=== PATIENT | female | born 1975 | race Caucasian/White ===

== ENCOUNTER 2017-05-24 07:27 | Emergency (ER) | payer MEDICAID, OTHER ==
[~2017-05-24] VITALS: Ht 157.5 cm; Wt 83.8 kg
[~2017-05-24 07:27] MED LIST: CEPH500C3 PO; CLON.5; LORT5TAB PO; PAXI25TA3 PO; ROBA750T3 PO
[2017-05-24 07:31] VITALS: BP 172/115; PULSE 93; RESP 16; TEMP 98.3; O2SAT 97
[2017-05-24] MEDS ORDERED: LISI10TA PO ×2 (07:45→08:54)
[2017-05-24] MEDS ORDERED: TRAZ1TAB14 PO (07:45)
[2017-05-24] MEDS ORDERED: METF500T PO (07:45)
[2017-05-24] MEDS ORDERED: PAXI40TA9 PO (07:45)
[2017-05-24] MEDS ORDERED: VIST25CA PO (07:45)
--- NOTE | 2017-05-24 08:06 | PD ---
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 Said she has been scratching the vaginal region because of the itch. Tried monostat but didnt help. Denies any fever, chest pain, sob, n/v, abdominal pain, focal weakness or numbness, dysuria , hematuria. Pt said she also ran out of her blood pressure medication for 1 month and requesting refills. PFSH Past Medical History Arthritis: Yes Bipolar Disorder: Yes Anxiety: Yes (PANIC ATTACKS) Depression: Yes Diabetes: Yes (GESTATIONAL) Patient Takes Glucophage: Yes Diminished Hearing: No Headaches: Yes Hypertension: Yes Psychiatric: Yes Migraines: Yes ?: Not : 7 Para: 6 Miscarriage: 1 : 0 Tubal Ligation: Yes (2004) Past Surgical History Cholecystectomy: Yes (2001) Gynecologic Surgery: Yes (BENIGN LUMP RIGHT BREAST 2000) Other Surgery: Yes (LUMP REMOVED FROM RIGHT BREAST) Social History Alcohol Use: No (ALLERGIC TO ALCOHOL) Tobacco Use: Yes (1-2 PACKS PER DAY) Substance Use: No Allergies-Medications (Allergen,Severity, Reaction): Coded Allergies: acetaminophen (Unverified Allergy, Intermediate, VOMITING, HIVES, 05/24/17) alcohol (Unverified Allergy, Intermediate, HIVES, 05/24/17) aspirin (Unverified Allergy, Intermediate, HIVES, 05/24/17) doxepin (Unverified Allergy, Intermediate, HIVES, 05/24/17) morphine (Unverified Allergy, Intermediate, HIVES, 05/24/17) propoxyphene (Unverified Allergy, Intermediate, VOMITING, HIVES, 05/24/17) Uncoded Allergies: FRUIT (Allergy, Mild, ALL FRUITS-DIARRHEA, 04/21/07) Reported Meds & Prescriptions Reported Meds & Active Scripts Active Lisinopril-Hctz 10-12.5 Mg Tab 1 Tab PO DAILY Reported Lisinopril-Hctz 10-12.5 Mg Tab 1 Tab PO DAILY Metformin (Metformin HCl) 500 Mg Tab 500 Mg PO BIDPC Vistaril (Hydroxyzine Pamoate) 25 Mg Cap 25 Mg PO HS Trazodone (Trazodone HCl) 150 Mg Tablet 150 Mg PO HS Paxil (Paroxetine HCl) 40 Mg Tablet 40 Mg PO DAILY NEB Review of Systems Except as stated in HPI: all other systems reviewed are Neg Physical Exam Narrative GENERAL: 41yo F not in distress. SKIN: Focused skin assessment warm/dry. HEAD: Atraumatic. Normocephalic. CARDIOVASCULAR: Regular rate and rhythm. No murmur appreciated. RESPIRATORY: No accessory muscle use. Clear to auscultation. Breath sounds equal bilaterally. GASTROINTESTINAL: Abdomen soft, non-tender, nondistended. No rebound tenderness or guarding. PELVIC: Yellow/white discharge. No blood. No CMT or adnexal tenderness bilaterally. MUSCULOSKELETAL: No obvious deformities. No clubbing. No cyanosis. No edema. NEUROLOGICAL: Awake and alert. No obvious cranial nerve deficits. Motor grossly within normal limits. Normal speech. PSYCHIATRIC: Appropriate mood and affect; insight and judgment normal. Data Data Last Documented VS Vital Signs Date Time Temp Pulse Resp B/P (MAP) Pulse Ox O2 Delivery O2 Flow Rate FiO2 05/24/17 09:07 89 16 184/99 (127) 98 Room Air 05/24/17 07:31 98.3 Orders Orders Gc And Chlamydia Pcr (05/24/17 08:00) Wet Prep Profile (05/24/17 08:00) Ed Urine Pregnancytest Poc (05/24/17 08:00) Blood Glucose (05/24/17 08:00) Lisinopril (Prinivil) (05/24/17 08:45) Hydrochlorothiazide (Microzide) (05/24/17 08:45) Metronidazole (Flagyl) (05/24/17 08:45) Ed Discharge Order (05/24/17 09:09) Labs Laboratory Tests Test 05/24/17 08:10 Clue Cells (Wet Prep) NONE SEEN Vaginal Trichomonas (Wet Prep) PRESENT Vaginal Yeast (Wet Prep) NONE SEEN MDM Medical Decision Making Medical Screen Exam Complete: Yes Emergency Medical Condition: Yes Differential Diagnosis Bacterial vaginosis vs. vaginal candidiasis vs. trichomoniasis Narrative Course 41yo F with c/o vaginal discharge and itching for 1 week. No abdominal pain or any other symptoms. Wet prep showed positive vaginal trichomonas. Pt given metronidazole 2gm PO. BP is elevated and pt has been out of her lisinopril- HCTZ for 1 month. Pt given her usual dose. Blood glucose 112. Urine negative. Pt is asymptomatic but requesting her blood pressure medication. Return precautions given. Diagnosis Primary Impression: Vaginal trichomoniasis Additional Impression: Hypertension Qualified Codes: I10 - Essential (primary) hypertension Patient Instructions: General Instructions Departure Forms: Tests/Procedures Additional Instructions: Please follow up with primary care physician for your blood pressure control. Return to the ED if symptoms worsen. Med/Other Pt SpecificInfo: Prescription(s) given Scripts Lisinopril-Hctz (Lisinopril-Hctz) 10-12.5 Mg Tab 1 TAB PO DAILY for Blood Pressure Management, #30 TAB 0 Refills Prov: Dede Aldridge DO 05/24/17 Disposition: 01 DISCHARGE HOME Condition: Stable Dede Aldridge DO May 24, 2017 08:05
[2017-05-24] MEDS ORDERED: LISINOPRIL 10 MG TAB PO ONE (08:45)
[2017-05-24] MEDS ORDERED: metroNIDAZOLE 500 MG TAB PO ONE (08:45)
[2017-05-24] MEDS ORDERED: HYDROCHLOROTHIAZIDE 12.5 MG CAP PO ONE (08:45)
[2017-05-24 09:07] VITALS: BP 184/99; PULSE 89; RESP 16; O2SAT 98
[2017-05-24 09:27] VITALS: BP 155/89
[2017-05-24 11:58] LABS: CHLAMYDIA PCR NOT DETECTED (NOT DETECT); NEISSERIA PCR NOT DETECTED (NOT DETECT)
== END 2017-05-24 09:28 | disposition home or self-care (01) ==
LOC: PHED 07:27
DX: A59.01 Trichomonal vulvovaginitis (principal); I10 Essential (primary) hypertension; E11.9 Type 2 diabetes mellitus without complications; F31.9 Bipolar disorder, unspecified; F17.200 Nicotine dependence, unspecified, uncomplicated; Z79.84 Long term (current) use of oral hypoglycemic drugs
CPT/HCPCS: 84703; 87210; 87491; 87591; 99284

== ENCOUNTER 2017-06-06 18:52 | Emergency (ER) | payer MEDICAID ==
[~2017-06-06] VITALS: Ht 160 cm; Wt 79.5 kg
[~2017-06-06 18:52] MED LIST changes: -CEPH500C3 PO; -CLON.5; +LISI10TA PO; -LORT5TAB PO; +METF500T PO; -PAXI25TA3 PO; +PAXI40TA9 PO; -ROBA750T3 PO; +TRAZ1TAB14 PO; +VIST25CA PO
[2017-06-06 18:56] VITALS: BP 212/97; PULSE 96; RESP 16; TEMP 98.6; O2SAT 98
[2017-06-06] MEDS ORDERED: VIST25CA PO (19:59)
[2017-06-06] MEDS ORDERED: PAXI10TA8 PO (19:59)
[2017-06-06] MEDS ORDERED: TRAZ100T10 PO (19:59)
--- NOTE | 2017-06-06 20:00 | PD ---
HPI Chief Complaint: Medication Refill Request Time Seen by Provider: 19:20 Travel History International Travel<30 days: No Contact w/Intl Traveler<30days: No Traveled to known affect area: No History of Present Illness HPI 41-year-old female with history of depression or anxiety, bipolar presents to the ED for prescription refill. Patient reports she has been on Paxil, Vistaril , trazodone fell last 20 years. She recently relocated to [place] and has had difficulty finding a psychiatrist. She has been off of her medications for over 2 weeks. She denies homicidal or suicidal ideation. She denies any medical complaint. She reports her dosages for her 3 medications have been the same for greater than the last 10 years. ON LICENSE OF [facility] Past Medical History Arthritis: Yes Bipolar Disorder: Yes Anxiety: Yes (PANIC ATTACKS) Depression: Yes Cardiovascular Problems: Yes (HTN) Diabetes: Yes Diminished Hearing: No Headaches: Yes Hypertension: Yes Psychiatric: Yes Respiratory: Yes (Asthma) Migraines: Yes ?: Not : 7 Para: 6 Miscarriage: 1 : 0 Tubal Ligation: Yes (2004) Past Surgical History Cholecystectomy: Yes (2001) Gynecologic Surgery: Yes (BENIGN LUMP RIGHT BREAST 2000) Other Surgery: Yes (LUMP REMOVED FROM RIGHT BREAST) Social History Alcohol Use: No (ALLERGIC TO ALCOHOL) Tobacco Use: Yes (1-2 PACKS PER DAY) Substance Use: No Allergies-Medications (Allergen,Severity, Reaction): Coded Allergies: acetaminophen (Unverified Allergy, Intermediate, VOMITING, HIVES, 06/06/17 ) alcohol (Unverified Allergy, Intermediate, HIVES, 06/06/17) aspirin (Unverified Allergy, Intermediate, HIVES, 06/06/17) doxepin (Unverified Allergy, Intermediate, HIVES, 06/06/17) morphine (Unverified Allergy, Intermediate, HIVES, 06/06/17) propoxyphene (Unverified Allergy, Intermediate, VOMITING, HIVES, 06/06/17) Uncoded Allergies: FRUIT (Allergy, Mild, ALL FRUITS-DIARRHEA, 04/21/07) Reported Meds & Prescriptions Reported Meds & Active Scripts Active Trazodone (Trazodone HCl) 100 Mg Tablet 200 Mg PO HS Vistaril (Hydroxyzine Pamoate) 25 Mg Cap 25 Mg PO TID PRN 30 Days Paxil (Paroxetine HCl) 10 Mg Tab 20 Mg PO DAILY Lisinopril-Hctz 10-12.5 Mg Tab 1 Tab PO DAILY Reported Lisinopril-Hctz 10-12.5 Mg Tab 1 Tab PO DAILY Metformin (Metformin HCl) 500 Mg Tab 500 Mg PO BIDPC Vistaril (Hydroxyzine Pamoate) 25 Mg Cap 25 Mg PO HS Trazodone (Trazodone HCl) 150 Mg Tablet 150 Mg PO HS Paxil (Paroxetine HCl) 40 Mg Tablet 40 Mg PO DAILY NEB Review of Systems Except as stated in HPI: all other systems reviewed are Neg Physical Exam Narrative GENERAL: Alert, well-appearing female. Family present and at bedside. SKIN: Warm and dry. HEAD: Normocephalic. EYES: No scleral icterus. No injection or drainage. NECK: Supple, trachea midline. No JVD or lymphadenopathy. CARDIOVASCULAR: Regular rate and rhythm without murmurs, gallops, or rubs. RESPIRATORY: Breath sounds equal bilaterally. No accessory muscle use. GASTROINTESTINAL: Abdomen soft, non-tender, nondistended. MUSCULOSKELETAL: No cyanosis, or edema. BACK: Nontender without obvious deformity. No CVA tenderness. PSYCHIATRIC: No delusional thought processes. No hallucinations. Data Data Last Documented VS Vital Signs Date Time Temp Pulse Resp B/P (MAP) Pulse Ox O2 Delivery O2 Flow Rate FiO2 06/06/17 18:56 98.6 96 16 212/97 (135) 98 Room Air Orders Orders Ed Discharge Order (06/06/17 20:10) MDM Medical Decision Making Medical Screen Exam Complete: Yes Emergency Medical Condition: Yes Differential Diagnosis Encounter for medication refill, history of anxiety, history of depression Narrative Course 41-year-old female with a history of anxiety, depression, bipolar disorder here for medication refill. She reports she has been off of her psychiatric medications for approximately 2 weeks. She reports she has been on Paxil, this role, trazodone for the last 20 years. She denies homicidal or suicidal ideation. She has family support which is present. She reports she is actively looking for a new psychiatrist. I believe it is in the best interest of the patient to prescribe her psychiatric meds for 1 month and have her follow -up with a local clinic or [facility] for her mental health care Diagnosis Primary Impression: Medication refill Referrals: MELLO (Out patient) [facility] Psychiatrist Additional Instructions: Take your medications as prescribed. Follow-up with a local psychiatrist, [facility], or the [facility] for your mental health needs. Return if he developed new or worsening symptoms Scripts Trazodone (Trazodone) 100 Mg Tablet 200 MG PO HS for Control Depression, #60 TAB 0 Refills Prov: Raysa Leslie 06/06/17 Hydroxyzine Pamoate (Vistaril) 25 Mg Cap 25 MG PO TID Y for ANXIETY for 30 Days, CAP 0 Refills Prov: Raysa Leslie 06/06/17 Paroxetine (Paxil) 10 Mg Tab 20 MG PO DAILY, #60 TAB 0 Refills Prov: Raysa Leslie 06/06/17 Disposition: 01 DISCHARGE HOME Condition: Stable Raysa Leslie Jun 06, 2017 20:00
[2017-06-06 20:10] VITALS: BP 142/95; PULSE 91; RESP 18; O2SAT 98
== END 2017-06-06 20:46 | disposition home or self-care (01) ==
LOC: NEPK 18:52
DX: F31.9 Bipolar disorder, unspecified (principal); E11.9 Type 2 diabetes mellitus without complications; I10 Essential (primary) hypertension; F17.200 Nicotine dependence, unspecified, uncomplicated; Z76.0 Encounter for issue of repeat prescription; Z79.84 Long term (current) use of oral hypoglycemic drugs
CPT/HCPCS: 99281

== ENCOUNTER 2017-09-07 07:37 | Emergency (ER) | payer MEDICAID ==
[~2017-09-07] VITALS: Ht 160 cm; Wt 85.9 kg
[~2017-09-07 07:37] MED LIST changes: +PAXI10TA8 PO; +TRAZ100T10 PO
[2017-09-07 07:43] VITALS: BP 181/86; PULSE 84; RESP 16; TEMP 98.4; O2SAT 98
[2017-09-07 07:46] VITALS: BP 181/86; PULSE 84; RESP 16; TEMP 98.4; O2SAT 98
--- NOTE | 2017-09-07 08:01 | PD ---
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 She reports a similar episode occurred about 4 months ago and was diagnosed with trichomoniasis. She denies interval sexual intercourse however reports using a personal sexual device and worries it may have been insufficiently clean. No fever. Additional complaints include urinary incontinence since these symptoms began. PFSH Past Medical History Hx Anticoagulant Therapy: No Arthritis: Yes Bipolar Disorder: Yes Anxiety: Yes (PANIC ATTACKS) Depression: Yes Cardiovascular Problems: Yes (HTN) Diabetes: Yes Patient Takes Glucophage: Yes Diminished Hearing: No Headaches: Yes Hypertension: Yes Psychiatric: Yes Respiratory: Yes (Asthma) Migraines: Yes ?: Not : 7 Para: 6 Miscarriage: 1 : 0 Tubal Ligation: Yes (2004) Past Surgical History Cholecystectomy: Yes (2001) Gynecologic Surgery: Yes (BENIGN LUMP RIGHT BREAST 2000) Other Surgery: Yes (LUMP REMOVED FROM RIGHT BREAST) Social History Alcohol Use: No (ALLERGIC TO ALCOHOL) Tobacco Use: Yes (1-2 PACKS PER DAY) Substance Use: No Allergies-Medications (Allergen,Severity, Reaction): Coded Allergies: acetaminophen (Unverified Allergy, Intermediate, VOMITING, HIVES, 09/07/17) alcohol (Unverified Allergy, Intermediate, HIVES, 09/07/17) aspirin (Unverified Allergy, Intermediate, HIVES, 09/07/17) doxepin (Unverified Allergy, Intermediate, HIVES, 09/07/17) morphine (Unverified Allergy, Intermediate, HIVES, 09/07/17) propoxyphene (Unverified Allergy, Intermediate, VOMITING, HIVES, 09/07/17) Uncoded Allergies: FRUIT (Allergy, Mild, ALL FRUITS-DIARRHEA, 04/21/07) Reported Meds & Prescriptions Reported Meds & Active Scripts Active Paxil (Paroxetine HCl) 10 Mg Tab 20 Mg PO DAILY Lisinopril-Hctz 10-12.5 Mg Tab 1 Tab PO DAILY Reported Metformin (Metformin HCl) 500 Mg Tab 500 Mg PO BIDPC Vistaril (Hydroxyzine Pamoate) 25 Mg Cap 25 Mg PO HS Trazodone (Trazodone HCl) 150 Mg Tablet 150 Mg PO HS Review of Systems Except as stated in HPI: all other systems reviewed are Neg Physical Exam Narrative GENERAL: 42-year-old female well-nourished well-developed no acute distress ambulatory Vital Signs Date Time Temp Pulse Resp B/P (MAP) Pulse Ox O2 Delivery O2 Flow Rate FiO2 09/07/17 07:46 98.4 84 16 181/86 (117) 98 09/07/17 07:43 98.4 84 16 181/86 (117) 98 GENITOURINARY: Moderate discharge in the vault. No adnexal mass or tenderness. SKIN: Warm and dry. HEAD: Atraumatic. Normocephalic. EYES: Pupils equal and round. No scleral icterus. No injection or drainage. ENT: No nasal bleeding or discharge. Mucous membranes pink and moist. NECK: Trachea midline. No JVD. CARDIOVASCULAR: Regular rate and rhythm. RESPIRATORY: No accessory muscle use. Clear to auscultation. Breath sounds equal bilaterally. GASTROINTESTINAL: Abdomen soft, non-tender, nondistended. Hepatic and splenic margins not palpable. MUSCULOSKELETAL: Extremities without clubbing, cyanosis, or edema. No obvious deformities. NEUROLOGICAL: Awake and alert. No obvious cranial nerve deficits. Motor grossly within normal limits. Five out of 5 muscle strength in the arms and legs. Normal speech. PSYCHIATRIC: Appropriate mood and affect; insight and judgment normal. Data Data Last Documented VS Vital Signs Date Time Temp Pulse Resp B/P (MAP) Pulse Ox O2 Delivery O2 Flow Rate FiO2 09/07/17 07:46 98.4 84 16 181/86 (117) 98 Orders Orders Gc And Chlamydia Pcr (09/07/17 07:53) Wet Prep Profile (09/07/17 07:53) Urinalysis - C+S If Indicated (09/07/17 07:53) Ed Urine Pregnancytest Poc (09/07/17 07:53) Azithromycin Powd Pack (Zithromax Powd P (09/07/17 08:15) Lidocaine 1% Inj (50 Ml) (Xylocaine 1% I (09/07/17 08:15) Metronidazole (Flagyl) (09/07/17 08:15) Ceftriaxone Inj (Rocephin Inj) (09/07/17 08:15) Urine Culture (09/07/17 08:00) Lidocaine Pf 1% Inj (Xylocaine-Mpf 1% In (09/07/17 08:22) Labs Laboratory Tests Test 09/07/17 08:00 Urine Collection Type CLEAN CATCH Urine Color YELLOW Urine Turbidity CLEAR Urine pH 5.5 Urine Specific Salters 1.020 Urine Protein NEG mg/dL Urine Glucose (UA) NEG mg/dL Urine Ketones NEG mg/dL Urine Occult Blood TRACE Urine Nitrite NEG Urine Bilirubin NEG Urine Urobilinogen 0.2 MG/DL Urine Leukocyte Esterase LARGE Urine RBC 20-24 /hpf Urine WBC 100-200 /hpf Urine Squamous Epithelial Cells 0-5 /hpf Urine Bacteria MANY /hpf Urine Trichomonas MOD Microscopic Urinalysis Comment CULTURE INDICATED Urine Collection Time 08:00 Clue Cells (Wet Prep) NONE SEEN Vaginal Trichomonas (Wet Prep) PRESENT Vaginal Yeast (Wet Prep) NONE SEEN MDM Medical Decision Making Medical Screen Exam Complete: Yes Emergency Medical Condition: Yes Medical Record Reviewed: Yes Differential Diagnosis IUP, UTI, ectopic , ov torsion, appendicitis, TOA, cervicitis, BV, Trichomoniasis, ov cyst, hernia, mittelschmerz, pain from menstruation Narrative Course Urinalysis shows leukocytosis Wet prep shows trichomoniasis Urine is negative Scripts as below Diagnosis Primary Impression: Trichomoniasis Additional Impression: Cystitis Referrals: Primary Care Physician as needed Med/Other Pt SpecificInfo: Prescription(s) given Scripts Sulfamethoxazole-Trimethoprim (Bactrim DS) 800-160 Mg Tab 1 TAB PO BID for Infection, #6 TAB 0 Refills Prov: Hector Fonseca MD 09/07/17 Disposition: 01 DISCHARGE HOME Condition: Stable Hector Fonseca MD Sep 07, 2017 08:01
[2017-09-07 08:06] LABS: BILIRUBIN, URINE NEG (NEG); BLOOD, URINE TRACE (NEG); GLUCOSE,URINE NEG (NEG); KETONE, URINE NEG (NEG); NITRITE,URINE NEG (NEG); PH, URINE 5.5 (5.0-8.5); URINE COLOR YELLOW (YELLW/STRAW); URINE LEUKOCYTE ESTERASE LARGE (NEG)
[2017-09-07] MEDS ORDERED: AZITHROMYCIN PWD FOR SUSP 1 GM PACKET PO ONE (08:15)
[2017-09-07] MEDS ORDERED: LIDOCAINE HCL 1% 50 ML VIAL IM ONE (08:15)
[2017-09-07] MEDS ORDERED: cefTRIAXone 250 MG VIAL IM ONE (08:15)
[2017-09-07] MEDS ORDERED: metroNIDAZOLE 500 MG TAB PO ONE (08:15)
[2017-09-07 08:18] LABS: BACTERIA, URINE MANY /hpf; SQUAMOUS EPITHELIAL CELL URINE 0-5 /hpf (0-5); TRICHOMONAS, URINE MOD; WBC, URINE 100-200 /hpf (0-5)
[2017-09-07] MEDS ORDERED: LIDOCAINE HCL 1% PF 30 ML VIAL ONE (08:22)
[2017-09-07] MEDS ORDERED: BACT800T5 PO (08:26)
[2017-09-07 08:48] VITALS: BP 178/80
== END 2017-09-07 08:57 | disposition home or self-care (01) ==
LOC: PHED 07:37
DX: A59.9 Trichomoniasis, unspecified (principal); N30.90 Cystitis, unspecified without hematuria; I10 Essential (primary) hypertension; E11.9 Type 2 diabetes mellitus without complications; J45.909 Unspecified asthma, uncomplicated; F31.9 Bipolar disorder, unspecified; F41.0 Panic disorder [episodic paroxysmal anxiety]; F17.210 Nicotine dependence, cigarettes, uncomplicated; Z88.5 Allergy status to narcotic agent; Z79.84 Long term (current) use of oral hypoglycemic drugs; Z79.899 Other long term (current) drug therapy
CPT/HCPCS: 81001; 84703; 87086; 87210; 87491; 87591; 96372; 99284; J0696